=== PATIENT | male | born 1995 ===

== ENCOUNTER → 2017-12-27 | Outpatient (CLI) | payer BC ==
--- NOTE | 2017-12-27 17:27 | Diagnostic Imaging Report ---
INDICATION: Fall with left lateral knee pain. TIME OF EXAM: 5:27 PM FINDINGS: Three views of the left knee were obtained. Alignment is normal. The joint spaces are well maintained. The articular surfaces are smooth. No fracture, dislocation or effusion is seen. There does appear to be some ossification near the patellar tendon inferiorly. This is likely owing to prior tendinopathy. IMPRESSION: No acute bony abnormality is detected. Dictated by: Dictated on workstation # [id number]
== END ==
LOC: RAD 16:44
PROVIDERS: ATTEND Family Medicine
DX: M25.562 Pain in left knee (principal); W19.XXXA Unspecified fall, initial encounter
CPT/HCPCS: 73562